=== PATIENT | male | born 1955 | race Caucasian/White ===

== ENCOUNTER → 2017-02-04 | Outpatient (REF) | payer OTHER ==
[~2017-02-04] MED LIST: /ESCI20TA OR; /OXAZ10CA OR; ALBU17IN2 INH; CRES5TAB PO; FOLLOW UP; GLUC850T OR; GLYB1.255 OR; LISI20TA5 OR; LOPR50TA OR; METF750T OR; MULTIVIT OR; ROSU10TA OR; SYMB80AE INH; THIA100T OR; ZEST20TA PO; [UNRECOGNIZED DRUG - OTHER] OR; [UNRECOGNIZED DRUG - REMARK]; januvia OR
== END ==
LOC: M LAB REF 16:10
PROVIDERS: ATTEND Nurse Practitioner Family
DX: K75.81 Nonalcoholic steatohepatitis (NASH) (principal)

== ENCOUNTER → 2017-08-06 | Outpatient (REF) | payer OTHER | LOC: M LAB REF 12:26 | PROVIDERS: ATTEND Nurse Practitioner Family | DX: K76.9 Liver disease, unspecified (principal) ==

== ENCOUNTER → 2017-12-11 | Outpatient (REF) | payer OTHER ==
[2017-12-11 13:09] LABS: AMMONIA 52 uMOL/L (<32)
== END ==
LOC: M LAB REF 12:14
DX: K76.9 Liver disease, unspecified (principal)

== ENCOUNTER → 2018-06-09 | Outpatient (REF) | payer OTHER ==
[2018-06-09 13:01] LABS: INR 1.02; PROTHROMBIN TIME 13.5 SECONDS (12.1-14.4)
== END ==
LOC: M LAB REF 12:08
DX: K76.9 Liver disease, unspecified (principal)
CPT/HCPCS: 85610

== ENCOUNTER → 2020-05-01 | Outpatient (CLI) | payer MEDICARE, OTHER ==
[~2020-05-01] MED LIST changes: -/ESCI20TA OR; -/OXAZ10CA OR; +CRES10TA32 OR; +LEXA1TAB2 OR; +OXAZ10CA25 OR; -ROSU10TA OR
--- NOTE | 2020-05-01 16:11 | REPVR ---
PROCEDURE INFORMATION: Exam: MR Head Without Contrast; Internal Auditory Canals Exam date and time: 05/01/2020 12:29 PM Age: 64 years old Clinical indication: Other: Hearing loss; Additional info: Senor neuro hearing loss TECHNIQUE: Imaging protocol: MR of the head without contrast. Exam focused on the internal auditory canals. 3D rendering: MIP and/or 3D reconstructed images were created by the technologist. COMPARISON: No relevant prior studies available. FINDINGS: Brain: Mild chronic microvascular ischemic changes. No acute infarct. Ventricles: No ventriculomegaly. Mastoid air cells: Unremarkable. No effusions. Internal auditory canals: Unremarkable. 7th and 8th cranial nerves are unremarkable. No abnormal masses. Bones/joints: Unremarkable. IMPRESSION: No acute intracranial abnormality. Mild chronic microvascular ischemic changes. Electronically signed by: Adalid Jason On 05/01/2020 16:10:55 PM
== END ==
LOC: M RAD 10:59
PROVIDERS: ATTEND Otolaryngology
DX: H90.3 Sensorineural hearing loss, bilateral (principal)

== ENCOUNTER → 2020-06-22 | Outpatient (REF) | payer MEDICARE, OTHER | LOC: M LAB REF 17:59 | PROVIDERS: ATTEND Internal Medicine | DX: K70.30 Alcoholic cirrhosis of liver without ascites (principal) ==

== ENCOUNTER → 2020-10-04 | Outpatient (REF) | payer MEDICARE, OTHER ==
[2020-10-04 17:34] LABS: FOLATE > 24.0 NG/ML; VITAMIN B12 LEVEL 1834 PG/ML
== END ==
LOC: M LAB REF 16:12
PROVIDERS: ATTEND Internal Medicine
DX: K70.30 Alcoholic cirrhosis of liver without ascites (principal); D64.9 Anemia, unspecified

== ENCOUNTER → 2020-11-09 | Outpatient (REF) | payer MEDICARE, OTHER ==
[2020-11-09 12:30] LABS: INR 1.17; PROTHROMBIN TIME 15.2 SECONDS (12.5-14.3)
[2020-11-09 12:48] LABS: PERCENT SATURATION 10.3 % (19.7-50.0)
[2020-11-09 13:00] LABS: FOLATE 22.9 NG/ML
== END ==
LOC: M LAB REF 11:40
PROVIDERS: ATTEND Internal Medicine
DX: K70.31 Alcoholic cirrhosis of liver with ascites (principal)

== ENCOUNTER → 2021-01-19 | Outpatient (REF) | payer MEDICARE, OTHER | LOC: M LAB REF 16:01 | PROVIDERS: ATTEND Podiatrist Foot & Ankle Surgery | DX: L03.031 Cellulitis of right toe (principal) ==

== ENCOUNTER → 2021-03-09 | Outpatient (REF) | payer MEDICARE, OTHER ==
[2021-03-09 13:11] LABS: PERCENT SATURATION 15.3 % (19.7-50.0)
== END ==
LOC: M LAB REF 11:58
PROVIDERS: ATTEND Internal Medicine
DX: K70.31 Alcoholic cirrhosis of liver with ascites (principal)

== ENCOUNTER → 2021-05-29 | Outpatient (REF) | payer MEDICARE, OTHER ==
[2021-05-29 17:44] LABS: INR 1.13; PROTHROMBIN TIME 14.9 SECONDS (12.7-14.5)
== END ==
LOC: M LAB REF 17:20
PROVIDERS: ATTEND Nurse Practitioner Adult Health
DX: K70.30 Alcoholic cirrhosis of liver without ascites (principal)

== ENCOUNTER → 2021-05-29 | Outpatient (CLI) | payer MEDICARE, OTHER ==
--- NOTE | 2021-05-29 15:24 | REP ---
INDICATION: RT GREAT TOE RECURRENT INFECTION. COMPARISON: None. TECHNIQUE: Sagittal T2 fat suppressed and proton density. Coronal proton density, STIR and fat suppressed proton density. Axial fat suppressed proton density and T1. FINDINGS: The cortical and marrow signal seen throughout the right great toe is within normal limits. There is no evidence of a mass or mass effect. Subtle T2 hyper signal is seen throughout the surrounding soft tissues. This is nonspecific. There are no abnormal focal fluid collections in the soft tissues. There is slightly increased anterior joint fluid seen in the 1st metatarsophalangeal joint. This too is nonspecific. All imaged flexor and extensor tendons appear to be intact and of normal appearing low signal throughout IMPRESSION: Mild nonspecific soft tissue edema and slightly increased joint fluid as described above. Examination is otherwise unremarkable. <Electronically signed by Solomon Sánchez > 05/29/21 [id number]
== END ==
LOC: M PLAIMG 13:58
PROVIDERS: ATTEND Nurse Practitioner Adult Health
DX: L03.115 Cellulitis of right lower limb (principal)

== ENCOUNTER → 2021-08-09 | Outpatient (REF) | payer MEDICARE, OTHER ==
[2021-08-09 17:33] LABS: PERCENT SATURATION 29.3 % (19.7-50.0)
== END ==
LOC: M LAB REF 16:20
PROVIDERS: ATTEND Internal Medicine
DX: K70.30 Alcoholic cirrhosis of liver without ascites (principal); D64.9 Anemia, unspecified

== ENCOUNTER → 2021-09-05 | Outpatient (REF) | payer MEDICARE, OTHER | LOC: M LAB REF 12:18 | PROVIDERS: ATTEND Internal Medicine | DX: K70.30 Alcoholic cirrhosis of liver without ascites (principal) ==

== ENCOUNTER → 2021-10-10 | Outpatient (REF) | payer MEDICARE, OTHER ==
[2021-10-10 14:35] LABS: INR 1.2; PROTHROMBIN TIME 15.6 SECONDS (12.7-14.5)
[2021-10-10 14:36] LABS: PARTIAL THROMBOPLASTIN TIME 40.2 SECONDS (25.9-37.0)
[2021-10-10 14:39] LABS: D-DIMER QUANT 940.44 ng/ml (<500)
== END ==
LOC: M LAB REF 14:20
PROVIDERS: ATTEND Internal Medicine
DX: I81 Portal vein thrombosis (principal); Z95.828 Presence of other vascular implants and grafts

== ENCOUNTER → 2021-11-06 | Outpatient (REF) | payer MEDICARE, OTHER ==
[2021-11-07 16:40] LABS: PERCENT SATURATION 7.1 % (19.7-50.0)
== END ==
LOC: M LAB REF 16:21
PROVIDERS: ATTEND Internal Medicine
DX: K70.30 Alcoholic cirrhosis of liver without ascites (principal); D64.9 Anemia, unspecified

== ENCOUNTER → 2022-01-07 | Outpatient (REF) | payer MEDICARE, OTHER | LOC: M LAB REF 10:06 | PROVIDERS: ATTEND Internal Medicine | DX: N40.1 Benign prostatic hyperplasia with lower urinary tract symptoms (principal); Z79.899 Other long term (current) drug therapy ==

== ENCOUNTER → 2022-01-10 | Outpatient (REF) | payer MEDICARE, OTHER | LOC: M LAB REF 14:21 | PROVIDERS: ATTEND Physician Assistant Medical | DX: L03.116 Cellulitis of left lower limb (principal) ==

== ENCOUNTER → 2022-01-10 | Outpatient (CLI) | payer MEDICARE, OTHER | LOC: M RAD 14:25 | PROVIDERS: ATTEND Physician Assistant Medical | DX: R22.42 Localized swelling, mass and lump, left lower limb (principal); L03.116 Cellulitis of left lower limb ==

== ENCOUNTER → 2022-01-17 | Outpatient (REF) | payer MEDICARE, OTHER | LOC: M LAB REF 14:29 | PROVIDERS: ATTEND Physician Assistant Medical | DX: R22.42 Localized swelling, mass and lump, left lower limb (principal); L03.116 Cellulitis of left lower limb ==

== ENCOUNTER → 2022-01-22 | Outpatient (CLI) | payer MEDICARE, OTHER | LOC: M RAD 12:57 | PROVIDERS: ATTEND Physician Assistant Medical | DX: R22.42 Localized swelling, mass and lump, left lower limb (principal); M79.605 Pain in left leg; R79.1 Abnormal coagulation profile ==

== ENCOUNTER 2022-02-18 12:43 | Observation (INO) | payer MEDICARE, OTHER ==
[~2022-02-18] VITALS: Ht 180.3 cm; Wt 120.4 kg
[2022-02-18] MEDS ORDERED: ROSU10TA6 PO (16:59)
[2022-02-18] MEDS ORDERED: PANT40TA29 PO (16:59)
[2022-02-18] MEDS ORDERED: HUMA50IN4 SC (16:59)
[2022-02-18] MEDS ORDERED: MIRT-10 PO (16:59)
[2022-02-18] MEDS ORDERED: LACT10SO3 PO (16:59)
[2022-02-18] MEDS ORDERED: FURO40TA2 PO (16:59)
[2022-02-18] MEDS ORDERED: FERR325T19 PO (16:59)
[2022-02-18] MEDS ORDERED: EPLE50TA PO (16:59)
[2022-02-18] MEDS ORDERED: FOLI1TAB11 PO (16:59)
[2022-02-18] MEDS ORDERED: ELIQ2.5T PO (16:59)
[2022-02-18] MEDS ORDERED: TOUJ300I2 SC (16:59)
[2022-02-18] MEDS ORDERED: MAGN400T2 PO (16:59)
[2022-02-18] MEDS ORDERED: CLON-412 PO (16:59)
[2022-02-18 17:56] LABS: BASO % 0.3 % (0.0-1.0); EOS # 0.1 10^3/uL (0.0-0.5); EOS % 3.7 % (0.0-3.0); HEMATOCRIT 33.7 % (42.0-52.0); HEMOGLOBIN 11.2 g/dl (13.5-17.5); LYMPH # 0.6 10^3/uL (1.5-5.0); MEAN CORPUSCULAR HEMOGLOBIN 29.7 pg (27.0-33.0); MEAN CORPUSCULAR HGB CONC 33.2 g/dl (32.0-36.5); MEAN CORPUSCULAR VOLUME 89.4 fl (80.0-96.0); MONO # 0.2 10^3/uL (0.0-0.8); NEUTROPHILS % 66.7 % (36.0-66.0); RED BLOOD COUNT 3.77 10^6/uL (4.30-6.10)
[2022-02-18 18:12] LABS: ALBUMIN 3.2 GM/DL (3.2-5.2); BILIRUBIN,TOTAL 1.4 MG/DL (0.2-1.0); CREATININE FOR GFR 1.41 MG/DL (0.70-1.30); GLOMERULAR FILTRATION RATE 53.7 (>49); POTASSIUM SERUM 3.5 MEQ/L (3.5-5.1); TOTAL PROTEIN 7.4 GM/DL (6.4-8.2)
[2022-02-18 18:36] LABS: PLATELET COUNT, AUTOMATED 60 10^3/uL (150-450)
[2022-02-18 18:57] LABS: RSV AMPLIFICATION NEGATIVE (NEGATIVE)
[2022-02-18] MEDS ORDERED: LEXA1TAB2 PO (19:16)
[2022-02-18] MEDS ORDERED: VENTAER INH (19:16)
[2022-02-18] MEDS ORDERED: HOME MED LIST COMPLETE! XX SCH (19:20)
[2022-02-18] MEDS ORDERED: ALBUTEROL 90 MCG/ACT 8GM HFA INHALER INH PRN (20:10)
[2022-02-18] MEDS ORDERED: ACETAMINOPHEN TAB 650MG DOSE (2X325MG) PO PRN (20:10)
[2022-02-18] MEDS ORDERED: GLUCAGON INJ 1MG VIAL SC PRN (20:15)
[2022-02-18] MEDS ORDERED: GLUCOSE 4GM CHEW TABLET PO PRN (20:15)
[2022-02-18] MEDS ORDERED: DEXTROSE 50% 50 ML SYRINGE IV PRN (20:15)
[2022-02-18] MEDS: LEVEMIR (INSULIN DETEMIR) 1 UNITS/0.01ML SC SCH (21:00)
[2022-02-18 22:18] VITALS: BP 180/80
[2022-02-19] MEDS: MIRTAZAPINE 15 MG TAB PO SCH ×2 (00:27→20:27)
[2022-02-19] MEDS: ESCITALOPRAM OXALATE 10 MG TAB (LEXAPRO) PO SCH ×2 (00:27→20:28)
[2022-02-19] MEDS: APIXABAN 2.5 MG TAB (ELIQUIS) PO SCH ×3 (00:27→20:27)
[2022-02-19] MEDS: MAGNESIUM OXIDE 400MG TAB (MAG-OX) PO SCH ×2 (00:28→20:28)
[2022-02-19] MEDS: LACTULOSE 20 GM/30 ML SYRUP UD PO SCH ×3 (00:29→20:27)
[2022-02-19] MEDS: cloNIDine 0.1MG TABLET PO SCH ×3 (00:29→20:27)
[2022-02-19] MEDS: HumaLOG INSULIN (NovoLOG) PER UNIT SC SCH ×5 (00:29→19:31)
[2022-02-19 05:02] VITALS: BP 147/68
[2022-02-19 06:54] LABS: HEMATOCRIT 32.9 % (42.0-52.0); HEMOGLOBIN 10.9 g/dl (13.5-17.5); MEAN CORPUSCULAR HEMOGLOBIN 29.7 pg (27.0-33.0); MEAN CORPUSCULAR HGB CONC 33.1 g/dl (32.0-36.5); MEAN CORPUSCULAR VOLUME 89.6 fl (80.0-96.0); RED BLOOD COUNT 3.67 10^6/uL (4.30-6.10); WHITE BLOOD COUNT 2.6 10^3/uL (4.0-10.0)
[2022-02-19 06:57] LABS: PLATELET COUNT, AUTOMATED 56 10^3/uL (150-450)
[2022-02-19 07:03] LABS: INR 1.26; PROTHROMBIN TIME 16.2 SECONDS (12.7-14.5)
[2022-02-19 07:04] LABS: PARTIAL THROMBOPLASTIN TIME 43.2 SECONDS (25.9-37.0)
[2022-02-19 07:14] LABS: BLOOD UREA NITROGEN 17 MG/DL (7-18); CALCIUM LEVEL 9.5 MG/DL (8.8-10.2); CARBON DIOXIDE LEVEL 29 MEQ/L (21-32); CHLORIDE LEVEL 109 MEQ/L (98-107); CHOLESTEROL LEVEL 138 MG/DL (<200); CHOLESTEROL RISK RATIO 1.971 (<5); CREATININE FOR GFR 1.14 MG/DL (0.70-1.30); GLOMERULAR FILTRATION RATE > 60.0 (>49); GLUCOSE, FASTING 153 MG/DL (70-100); HDL CHOLESTEROL 70 MG/DL (>40); LDL CHOLESTEROL 53 MG/DL (<100); MAGNESIUM LEVEL 2.2 MG/DL (1.8-2.4); NON-HDL-C 68 MG/DL; POTASSIUM SERUM 3.2 MEQ/L (3.5-5.1); SODIUM LEVEL 147 MEQ/L (136-145); TRIGLYCERIDES LEVEL 74 MG/DL (<150)
[2022-02-19 07:19] LABS: HEMOGLOBIN A1c 9.2 %
[2022-02-19 08:30] VITALS: BP 147/68
[2022-02-19] MEDS ORDERED: POTASSIUM CHLORIDE 10MEQ SR TABLET PO ONE ×2 (08:45→10:45)
[2022-02-19] MEDS: FOLIC ACID 1 MG TAB PO SCH (08:53)
[2022-02-19] MEDS: ROSUVASTATIN 10 MG TAB (CRESTOR) PO SCH (08:53)
[2022-02-19] MEDS: FERROUS SULFATE 325MG TAB PO SCH (08:53)
[2022-02-19] MEDS: FUROSEMIDE 40 MG TAB PO SCH (08:53)
[2022-02-19] MEDS: PANTOPRAZOLE 40MG TAB (PROTONIX) PO SCH (08:54)
[2022-02-19 10:01] LABS: ALBUMIN 3.3 GM/DL (3.2-5.2); ALT/SGPT 32 U/L (12-78); BILIRUBIN,TOTAL 1.2 MG/DL (0.2-1.0); BLOOD UREA NITROGEN 16 MG/DL (7-18); CALCIUM LEVEL 9.7 MG/DL (8.8-10.2); CARBON DIOXIDE LEVEL 29 MEQ/L (21-32); CHLORIDE LEVEL 110 MEQ/L (98-107); GLOMERULAR FILTRATION RATE > 60.0 (>49); GLUCOSE, FASTING 56 MG/DL (70-100); POTASSIUM SERUM 3.1 MEQ/L (3.5-5.1); SODIUM LEVEL 148 MEQ/L (136-145); TOTAL PROTEIN 7.3 GM/DL (6.4-8.2)
[2022-02-19 14:00] VITALS: BP 164/77
[2022-02-19 19:30] VITALS: BP 178/83
[2022-02-19] MEDS: LEVEMIR (INSULIN DETEMIR) 1 UNITS/0.01ML SC SCH (20:19)
[2022-02-19 23:20] VITALS: BP 142/80
[2022-02-20 04:00] VITALS: BP 160/80
[2022-02-20 06:18] LABS: MEAN CORPUSCULAR HEMOGLOBIN 29.9 pg (27.0-33.0); MEAN CORPUSCULAR HGB CONC 33.3 g/dl (32.0-36.5); MEAN CORPUSCULAR VOLUME 89.8 fl (80.0-96.0); RED BLOOD COUNT 3.34 10^6/uL (4.30-6.10); WHITE BLOOD COUNT 2.6 10^3/uL (4.0-10.0)
[2022-02-20 06:26] LABS: PLATELET COUNT, AUTOMATED 50 10^3/uL (150-450)
[2022-02-20 06:45] LABS: ALBUMIN 2.6 GM/DL (3.2-5.2); ALT/SGPT 30 U/L (12-78); BILIRUBIN,TOTAL 1.1 MG/DL (0.2-1.0); BLOOD UREA NITROGEN 16 MG/DL (7-18); CALCIUM LEVEL 9.4 MG/DL (8.8-10.2); CARBON DIOXIDE LEVEL 27 MEQ/L (21-32); CHLORIDE LEVEL 107 MEQ/L (98-107); CREATININE FOR GFR 1.15 MG/DL (0.70-1.30); GLOMERULAR FILTRATION RATE > 60.0 (>49); GLUCOSE, FASTING 227 MG/DL (70-100); POTASSIUM SERUM 3.8 MEQ/L (3.5-5.1); SODIUM LEVEL 141 MEQ/L (136-145); TOTAL PROTEIN 6.6 GM/DL (6.4-8.2)
[2022-02-20] MEDS: FUROSEMIDE 40 MG TAB PO SCH (09:01)
[2022-02-20] MEDS: APIXABAN 2.5 MG TAB (ELIQUIS) PO SCH (09:01)
[2022-02-20] MEDS: LACTULOSE 20 GM/30 ML SYRUP UD PO SCH ×2 (09:01→16:00)
[2022-02-20] MEDS: FERROUS SULFATE 325MG TAB PO SCH (09:01)
[2022-02-20 09:02] VITALS: BP 160/80
[2022-02-20] MEDS: PANTOPRAZOLE 40MG TAB (PROTONIX) PO SCH (09:02)
[2022-02-20] MEDS: FOLIC ACID 1 MG TAB PO SCH (09:02)
[2022-02-20] MEDS: ROSUVASTATIN 10 MG TAB (CRESTOR) PO SCH (09:02)
[2022-02-20] MEDS: cloNIDine 0.1MG TABLET PO SCH (09:02)
[2022-02-20 14:00] VITALS: BP 130/59
[2022-02-20 14:26] VITALS: BP 130/59
[2022-02-20] MEDS ORDERED: LACT10SO3 PO (15:29)
[2022-02-20] MEDS ORDERED: TOUJ300I2 SC (15:29)
[2022-02-20] MEDS ORDERED: LEVEMIR (INSULIN DETEMIR) 1 UNITS/0.01ML SC SCH ×2 (21:00)
== END 2022-02-20 17:00 | disposition home or self-care (01) ==
LOC: M ED 12:43 → M 4MAIN 12:44 → M ED INP 12:44 → ENRESERV 21:11 → M 4MAIN 22:18
PROVIDERS: ADMIT Family Medicine; ATTEND Internal Medicine
DX: R41.82 Altered mental status, unspecified (principal); G45.9 Transient cerebral ischemic attack, unspecified; E16.2 Hypoglycemia, unspecified; E87.6 Hypokalemia; R79.89 Other specified abnormal findings of blood chemistry; E72.20 Disorder of urea cycle metabolism, unspecified; K70.30 Alcoholic cirrhosis of liver without ascites; Z91.128 Patient's intentional underdosing of medication regimen for other reason; D61.818 Other pancytopenia; I10 Essential (primary) hypertension; E11.9 Type 2 diabetes mellitus without complications; K21.9 Gastro-esophageal reflux disease without esophagitis; F41.9 Anxiety disorder, unspecified; F32.9 Major depressive disorder, single episode, unspecified; J45.909 Unspecified asthma, uncomplicated; E78.5 Hyperlipidemia, unspecified; Z86.16 Personal history of COVID-19; Z79.4 Long term (current) use of insulin; Z79.01 Long term (current) use of anticoagulants; Z79.899 Other long term (current) drug therapy; Z88.0 Allergy status to penicillin
CPT/HCPCS: 36415; 70450; 70544; 70551; 71045; 76705; 76775; 80048; 80053; 80061; 82140; 82947; 83036; 83735; 84484; 85025; 85027; 85049; 85055; 85610; 85730; 87631; 93005; 93306; 93880; 97161; 99285; G0378; J1815

== ENCOUNTER → 2022-03-06 | Outpatient (REF) | payer MEDICARE, OTHER ==
[~2022-03-06] MED LIST changes: +CLON-412 PO; +ELIQ2.5T PO; +EPLE50TA PO; +FERR325T19 PO; +FOLI1TAB11 PO; +FURO40TA2 PO; +HUMA50IN4 SC; +LACT10SO3 PO; +LEXA1TAB2 PO; +MAGN400T2 PO; +MIRT-10 PO; +PANT40TA29 PO; +ROSU10TA6 PO; +TOUJ300I2 SC; +VENTAER INH
== END ==
LOC: M LAB REF 16:54
PROVIDERS: ATTEND Internal Medicine
DX: K70.30 Alcoholic cirrhosis of liver without ascites (principal)

== ENCOUNTER → 2022-03-20 | Outpatient (REF) | payer MEDICARE, OTHER ==
[2022-03-20 17:06] LABS: PERCENT SATURATION 76.3 % (19.7-50.0)
== END ==
LOC: M LAB REF 16:05
PROVIDERS: ATTEND Internal Medicine
DX: K70.30 Alcoholic cirrhosis of liver without ascites (principal)

== ENCOUNTER → 2022-05-28 | Outpatient (CLI) | payer MEDICARE, OTHER | LOC: M RAD 13:03 | PROVIDERS: ATTEND Nurse Practitioner Adult Health | DX: R60.0 Localized edema (principal); D64.9 Anemia, unspecified ==

== ENCOUNTER → 2022-06-20 | Outpatient (REF) | payer MEDICARE, OTHER ==
[2022-06-20 11:57] LABS: INR 1.21; PROTHROMBIN TIME 15.7 SECONDS (12.7-14.5)
== END ==
LOC: M LAB REF 11:20
PROVIDERS: ATTEND Internal Medicine
DX: I81 Portal vein thrombosis (principal); Z86.73 Personal history of transient ischemic attack (TIA), and cerebral infarction without residual deficits

== ENCOUNTER → 2022-06-28 | Outpatient (REF) | payer MEDICARE, OTHER | LOC: M LAB REF 11:33 | PROVIDERS: ATTEND Internal Medicine | DX: D64.9 Anemia, unspecified (principal) ==